=== PATIENT | female | born 1990 | race African-American/Black ===

== ENCOUNTER 2016-09-08 21:22 | Emergency (ER) | payer OTHER ==
[~2016-09-08] VITALS: Ht 170.2 cm; Wt 117.8 kg
[2016-09-08] MEDS ORDERED: ALBU18HF INH (22:23)
[2016-09-08 22:34] VITALS: BP 147/95
== END 2016-09-08 22:57 | disposition home or self-care (01) ==
LOC: ED 22:51
DX: J45.30 Mild persistent asthma, uncomplicated (principal)
CPT/HCPCS: 93005; 99283